=== PATIENT | male | born 1965 | race Caucasian/White ===

== ENCOUNTER 2018-05-24 11:07 | Day surgery (SDC) | payer OTHER, MEDICAID, SELFPAY ==
[2018-05-11 16:33] VITALS: BMI 27.3
--- NOTE | 2018-05-24 12:14 | DI.RAD.S_ITS ---
PROCEDURE: XR KNEE RT 1TO2V INDICATIONS: prosthesis placement TECHNIQUE: 2 view(s) of the knee acquired. COMPARISON: None. FINDINGS: Bones: Patient is status post knee joint arthroplasty. Hardware components are in expected positions. Visualized bony structures are intact. Soft tissues: Overlying postoperative changes are noted. Note is made again of a thin wire-like foreign body abutting the lateral border of the right fibular head, present on preoperative plain film imaging in February of this year, and also in December 2016. IMPRESSION: Normal anatomic alignment established after right-sided medial unicompartmental knee hemiarthroplasty. Small metal foreign body wire-like structure has been present on multiple prior plain film imaging studies before the operative procedure, abutting the lateral border of the fibular head. Dictated by: Toribio Soria M.D. on 05/24/2018 at 16:22 Approved by: Toribio Soria M.D. on 05/24/2018 at 16:22
[2018-05-24] MEDS: ACETAMINOPHEN 325 MG TABLET 975 MG PO (12:32)
[2018-05-24] MEDS: PREGABALIN 75 MG CAPSULE PO (12:32)
[2018-05-24] MEDS: CELECOXIB 200 MG CAPSULE PO (12:32)
[2018-05-24 12:41] VITALS: BP 131/90; PULSE 74; RESP 14; TEMP 36.6; O2SAT 98; BMI 21.4
[2018-05-24] MEDS: VANCOMYCIN 1,000 MG/200 ML FROZ.PIGGY 200 MG IV (12:55)
--- NOTE | 2018-05-24 13:07 | SUR.PREOP ---
States that he drinks 30-40 oz beer/day, Smokes 12-14 cigs/day, down from 1 1/2-2 packs/day (36 years). Lungs - exp wheeze, mid right,rub upper right. Used inhalers yesterday, has run out, states that he can get more today if needed. Told patient that he needs to get them refilled right away.
[2018-05-24] MEDS: LACTATED RINGERS 1,000 ML 42 ML IV (13:10)
--- NOTE | 2018-05-24 13:27 | SUR.PREOP ---
1327 Dr. Love talking w/patient, explaining nerve block.
--- NOTE | 2018-05-24 13:47 | SUR.PREOP ---
Patient had nerve block by Dr. Love. On O2 at 2LNP continuous with continuous VS and air sampling and monitoring. patient stayed awake throughout procedure. Talking, oriented. Friend was present throughout procedure. VSS. Completed [id number]
--- NOTE | 2018-05-24 13:49 | SUR.PREOP ---
See paper rhythm and VS strip.
[2018-05-24] MEDS: GENTAMICIN 120 MG in SODIUM CHLORIDE 0.9% 100 ML 103 ML IV (13:57)
--- NOTE | 2018-05-24 14:33 | SUR.OPER ---
Supine on padded OR bed. Pillow under head, arms secured on padded armboards <90 degree abduction. Safety belt across torso. Non-operative leg secured with tape over blanket over lower leg. Operative leg secured in DeMayo/Erickson positioner. Foam padded brace at thigh of operative leg.
--- NOTE | 2018-05-24 14:38 | P.PCN_ITS ---
Procedures Date/Time Date of procedure: 05/24/18 Time of procedure: 13:30 General Procedure description: Ultrasound guided adductor canal nerve block for post op pain control after right knee surgery by Dr. Pope. Risk and benefits of procedure discussed with patient. ASA monitoring applied to patient. O2 given via nasal cannula. 2 mg Versed and 50 mcg fentanyl given for procedural sedation. Skin site was prepped with chlorhexidine and allowed to fully dry. Sterile gloves, mask, hat and probe cover were used to maintain sterility. 2% lidocaine and 30ga needle was used to make a small skin wheal at needle insertion site. Under ultrasound guidance, a 21ga 100mm Pajunk needle was directed into the adductor canal near femoral artery and saphenous nerve at the level of mid thigh. Patient reported no parasthesias. After negative aspiration , 20 mL 0.5% ropivicaine and 10mg dexamethasone were injected around saphenous nerve. Patient tolerated procedure well.
[2018-05-24] MEDS: BUPIVACAINE 0.25% W/ EPI VIAL 50 ML INJ (14:43)
[2018-05-24] MEDS: BUPIVACAINE LIPOSOME 266 MG/20 ML VIAL INJ (14:45)
[2018-05-24 15:53] VITALS: BP 127/92; PULSE 82; RESP 12; TEMP 36.8; O2SAT 97
[2018-05-24 15:58] VITALS: BP 132/79; PULSE 79; RESP 15; O2SAT 96
[2018-05-24 16:09] VITALS: BP 123/95; PULSE 76; RESP 12; TEMP 36.6; O2SAT 97
[2018-05-24 16:15] VITALS: BP 128/88; PULSE 77; RESP 10; O2SAT 98
--- NOTE | 2018-05-24 16:56 | SUR.PHASEII ---
PT in with patient to do crutch training and dispensing of crutches. patient and friend verbalized understanding of instructions
--- NOTE | 2018-05-24 20:52 | PM.OP.1 ---
Operative Date/Time/Diagnoses Date of procedure: 05/24/18 Time of procedure: 14:05 Pre-op diagnosis: right knee OA medial compartment Post-op diagnosis: same Procedure & Clinicians Procedure: right knee diagnostic arthroscopy and medial compartment arthroplasty. Same procedure as scheduled: Yes Indications: The patient has had progressively worsening right knee pain with radiographic changes consistent with arthritis. Non-operative management has failed and the patient has requested Unicompartment knee replacement. The risks, benefits and alternatives to surgery were discussed with the patient prior to proceeding. Risks discussed included, but were not limited to, failure to relieve pain, stiffness, infection, nerve damage, deep venous thrombosis, pulmonary embolism, stroke, coma, heart attack, permanent paralysis and , as well as the potential need for eventual revision of the prosthetic. Surgeon: Lissa Pope Vp Business Development: Obi Bojorquez Anesthesia Type: General and Peripheral nerve block Operative Notes Findings: severe right knee medial compartment arthritis, mild patellofemoral and lateral compartment arthritis, suprapatellar pouch no loop out loose bodies, patellofemoral joint grade 1 chondromalacia of the patella and trochlear groove, medial compartment grade 4 chondromalacia and severe arthritic change, notch normal ACL, lateral compartment areas of grade 1-2 chondromalacia along the lateral femoral condyle in the notch region Closure Type: primary Specimen(s): none sent Implants & Drains: Pope [employer] ZUK unicompartment replacement medial size E femur, size 4 tibia, +8 poly Estimated Blood Loss (mL): 200 Blood products transfused: none Tourniquet time (min): 60 Procedure in detail: The patient was seen in the pre-operative area, where the right knee was identified as the operative site and this was marked with my initials. The patient received pre-operative antibiotics, and was taken to the operating room and placed on the operative table in the supine position. After satisfactory anesthesia, a timekeeper supervisor out was performed. The right leg was encircled with a tourniquet about the proximal thigh, and the leg was prepared from the toes to the tourniquet with ChloroPrep in the usual fashion and draped through sterile drapes. The leg was elevated and exsanguinated with Eschmark bandage and the tourniquet inflated to [250] mmHg pressure. A lateral arthroscopic portal was established. Diagnostic arthroscopy revealed findings as listed above. He had severe arthritis in the medial compartment with very minimal arthritis in the patellofemoral joint and lateral compartment. The knee was approached through an approximately 10 cm incision medial parapatella incision and carried into the knee through a medial parapatellar arthrotomy. The osteophytes and medial meniscus were removed. Next, a small amount of the anterior tibial boss was carefully resected with a saw. The guide was placed along the medial joint line. It was meticulously adjusted to make sure there was appropriate slope that it was at the joint line and then was pinned to the tibia and the femur. The medial femoral condylar cut was made in extension. The tibial cut was made in flexion. The bone was meticulously irrigated with normal saline. Small amount of additional meniscus was resected posterior capsule was checked and injected with Marcaine. The extension gap was carefully checked with an 8 mm gap marketing finance specialist was noted that it fit well. A small number of additional osteophytes were resected. The tibia was a size [4]. It was noted that it fit without overhang. The femur was sized and it was noted to be a [E]. The appropriate cutting guide was pinned into place and carefully positioned on the femoral condyle. Drill holes were placed. The tibia was pinned into place and drill holes were made. Trial reduction with the appropriate poly showed full range of motion and good stability at 0, 45. and 90? with normal tracking of the components without edge loading. The bone was meticulously irrigated and dried. Additional Marcaine was injected. The posterior capsule was injected with 0.25% Marcaine mixed with 20 ml Exparel for post-operative pain control. The remainder of this mixture was injected into the capsule and subcutaneous tissues during cement curing. Range of motion was [0-130], with good stability throughout the range. The trials were then remove. The cement was as applied and the final prosthetics placed. Excess cement was removed during and after cement curing. A brief medial compartment Betadine soak was performed. After confirming there was no extruded cement posteriorly, the final tibial insert was placed. The knee was copiously irrigated and the tourniquet deflated. Hemostasis was obtained. The capsule was closed with interrupted ethibond. The subcutaneous tissue was closed with barbed sutures. The skin with a running 3-0 V-Lock suture and surgical glue. An Aquacel Ag dressing was applied and the patient was taken to recovery having tolerated the procedure well. Complications: none Condition: stable Disposition: Acute Care Plan for aftercare: The patient will be maintained on a standard total knee replacement protocol with weight bearing as tolerated. The patient will receive aspirin and sequential compression devices for DVT prophylaxis. The patient will be discharged home when safe for the home environment.
--- NOTE | 2018-05-26 16:25 | PT.OTN ---
Current Diagnoses Unilateral primary osteoarthritis, right knee (05/24/18) Physical Therapy Treatment Note PT-OP-A Visit Information Start: 05/26/18 16:21 Freq: Status: Active Protocol: Document 05/24/18 16:30 IJS (Rec: 05/26/18 16:24 IJS [id number]) Out-Patient Physical Therapy Visit Information Visit Information Visit Type Treatment Note Visit Note Patient fit and instructed in crutch training WBAT right LE. Discussed axillary pressure precautions. He declined to practice stairs as he has two rails he can hold to get into the house. Safe for D/C home with family and crutches.
== END 2018-05-24 17:04 | disposition home or self-care (01) ==
PROVIDERS: Visit Provider Orthopaedic Surgery
PROC: (CPT 27446; principal; 2018-05-24 12:45)
DX: M17.11 Unilateral primary osteoarthritis, right knee (principal); M94.261 Chondromalacia, right knee; J44.9 Chronic obstructive pulmonary disease, unspecified; F17.210 Nicotine dependence, cigarettes, uncomplicated; B19.20 Unspecified viral hepatitis C without hepatic coma; G89.18 Other acute postprocedural pain
CPT/HCPCS: 27446; 64450; 73560; 97116; C1776; C9290; J1100; J2250; J2405; J2704; J3010; J3370